=== PATIENT | male | born 1970 | race Caucasian/White ===

== ENCOUNTER 2019-09-07 13:33 | Emergency (ER) | payer OTHER ==
[2019-09-07] MEDS ORDERED: IBUPROFEN 600 MG TABLET PO ONE (14:16)
--- NOTE | 2019-09-07 14:21 | ER Document Report ---
HPI - HPI Time Seen by Provider: 09/07/19 14:10 Notes: Patient is a 49-year-old male no significant past medical history who presents complaining of a tearing sensation to his right bicep and then noticing bulging in his lower bicep area when he tried to pick someone up off of the floor today. He does have some mild pain to this area. No other concerns or complaints. Denies drug allergies. Denies any headache, fever, URI, sore throat, chest pain, palpitations, syncope, cough, shortness of breath, wheeze, dyspnea, abdominal pain, nausea/vomiting/diarrhea, urinary retention, dysuria, hematuria, or rash. - ROS Systems Reviewed and Negative: Yes All other systems reviewed and negative Past Medical History - Social History Smoking Status: Unknown if Ever Smoked Family History: Reviewed & Not Pertinent Vertical Provider Document - CONSTITUTIONAL Agree With Documented VS: Yes Notes: PHYSICAL EXAMINATION: GENERAL: Well-appearing, well-nourished and in no acute distress. NECK: Normal range of motion, supple without lymphadenopathy. Non-tender. Spurling negative. No rigidity/meningismus. LUNGS: Breath sounds clear to auscultation bilaterally and equal. No wheezes rales or rhonchi. HEART: Regular rate and rhythm without murmurs, rubs, gallops. Musculoskeletal: Rt shoulder: + distal biceps bulge noted with mild tenderness and bogginess. Biceps muscle not able to be activated, suspect tendon rupture. FROM to passive/active. Strength 4+/5 due to pain. No erythema or warmth. No ecchymosis. N/V intact distal otherwise. Extremities: No cyanosis, clubbing, or edema b/l. Peripheral pulses 2+. Capillary refill less than 3 seconds. NEUROLOGICAL: Normal speech, normal gait. Normal sensory, motor exams PSYCH: Normal mood, normal affect. SKIN: Warm, Dry, normal turgor, no rashes or lesions noted. Course - Re-evaluation Re-evalutation: 09/07/[address] Blood: He can see this gentleman tomorrow afternoon in the office. Patient is an afebrile, well-hydrated, 49-year-old male who presents to the ED with a prox biceps tendon rupture. Vitals are acceptable without any significant tachycardia, tachypnea, or hypoxia. PE is otherwise unremarkable for any neurovascular compromise, open fracture, septic joint. XR unremarkable. Sling provided. Motrin given PO. Patient is nontoxic-appearing. No other labs or imaging warranted at this time based on H&P. Conservative measures otherwise for symptoms. Recheck with your PCM in 3-5 days. Call orthopedics to schedule an appointment for further evaluation and management. Return to the ED with any worsening/concerning symptoms otherwise as reviewed in discharge. Patient is in agreement. - Vital Signs Vital signs: Temp Pulse Resp BP Pulse Ox 98.3 F 77 18 124/80 99 09/07/19 13:41 09/07/19 13:41 09/07/19 13:41 09/07/19 13:41 09/07/19 13:41 Discharge - Discharge Clinical Impression: Rupture of proximal biceps tendon Qualifiers: Encounter type: initial encounter Laterality: right Qualified Code(s): S46.211A - Strain of muscle, fascia and tendon of other parts of biceps, right arm, initial encounter Condition: Stable Disposition: HOME, SELF-CARE Additional Instructions: Rest, Ice, Compression, Elevation Use sling as directed Tylenol/ibuprofen as needed F/u with your PCP in 3-5 days for a recheck See OrthoDr. Blood, tomorrow afternoon in his office--call today to confirm. Return to the ED with any worsening symptoms and/or development of fever, headache, chest pain, palpitations, syncope, shortness of breath, trouble breathing, abdominal pain, n/v/d, muscle weakness/paralysis, numbness/tingling, swelling, redness, or other worsening symptoms that are concerning to you. Referrals: HEMAL BLOOD MD [ACTIVE STAFF] - Follow up tomorrow
[2019-09-07] MEDS ORDERED: HYDROCODONE/ACETAMINOPHEN 5-325 MG (6 TAB/ER DISP) PO PRN (14:58)
--- NOTE | 2019-09-07 15:01 | RADIOLOGY REPORT (SQ) ---
EXAM DESCRIPTION: SHOULDER RIGHT 2 OR MORE VIEWS COMPLETED DATE/TIME: 09/07/2019 2:35 pm REASON FOR STUDY: prox biceps tendon rupture on exam COMPARISON: None. NUMBER OF VIEWS: Three views. TECHNIQUE: Internal rotation, external rotation, and Y view images acquired of the right shoulder. LIMITATIONS: None. FINDINGS: MINERALIZATION: Normal. BONES: No acute fracture. No worrisome bone lesions. No avulsion fragments along the coracoid proce ss or superior bony glenoid. JOINTS: No glenohumeral joint malalignment. No AC joint widening. VISUALIZED LUNGS AND RIBS: No pneumothorax. No rib fracture. SOFT TISSUES: No radiopaque foreign body. OTHER: No other significant finding. IMPRESSION: NEGATIVE STUDY OF THE RIGHT SHOULDER. NO RADIOGRAPHIC EVIDENCE OF ACUTE INJURY. TECHNICAL DOCUMENTATION: JOB ID: [id number] [employer]- All Rights Reserved Reading location - IP/workstation name: [email or web address]
[2019-09-07 15:50] VITALS: BP 120/80
== END 2019-09-07 15:42 | disposition home or self-care (01) ==
LOC: ER 13:33
DX: S46.211A Strain of muscle, fascia and tendon of other parts of biceps, right arm, initial encounter (principal); X50.0XXA Overexertion from strenuous movement or load, initial encounter
CPT/HCPCS: 99283

== ENCOUNTER 2020-02-22 05:23 | Day surgery (SDC) | payer OTHER, BC ==
[2020-02-17 10:53] LABS: ABSOLUTE BASOPHILS # (AUTO) 0.1 10^3/uL (0.0-0.2); ABSOLUTE EOSINOPHILS # (AUTO) 0.2 10^3/uL (0.0-0.6); ABSOLUTE MONOCYTES (AUTO) 0.5 10^3/uL (0.1-1.4); ABSOLUTE NEUT (AUTO) 4.4 10^3/uL (1.7-8.2); BASOPHILS % (AUTO) 0.8 % (0-2); EOSINOPHILS % (AUTO) 2.5 % (0-6); HEMOGLOBIN 17.2 g/dL (13.5-17.0); LYMPHOCYTES % (AUTO) 28.2 % (13-45); MEAN CORPUSCULAR HEMOGLOBIN 29.9 pg (27.0-33.4); MEAN CORPUSCULAR HGB CONC 35.2 g/dL (32.0-36.0); MEAN CORPUSCULAR VOLUME 85 fl (80-97); MONOCYTES % (AUTO) 7.5 % (3-13); PLATELET COUNT 256 10^3/uL (150-450); RED BLOOD COUNT 5.75 10^6/uL (4.35-5.55); RED CELL DISTRIBUTION WIDTH 12.6 % (11.5-14.0); TOTAL CELLS COUNTED % (AUTO) 100 %; WHITE BLOOD COUNT 7.3 10^3/uL (4.0-10.5)
--- NOTE | 2020-02-17 12:49 | RADIOLOGY REPORT (SQ) ---
EXAM DESCRIPTION: CHEST PA/LATERAL IMAGES COMPLETED DATE/TIME: 02/17/2020 10:46 am REASON FOR STUDY: PRE-OP COMPARISON: None. EXAM PARAMETERS: NUMBER OF VIEWS: two views TECHNIQUE: Digital Frontal and Lateral radiographic views of the chest acquired. RADIATION DOSE: NA LIMITATIONS: none FINDINGS: LUNGS AND PLEURA: No opacities, masses or pneumothorax. No pleural effusion. MEDIASTINUM AND HILAR STRUCTURES: No masses or contour abnormalities. HEART AND VASCULAR STRUCTURES: Heart normal size. No evidence for failure. BONES: No acute findings. HARDWARE: None in the chest. OTHER: No other significant finding. IMPRESSION: NO SIGNIFICANT RADIOGRAPHIC FINDING IN THE CHEST. TECHNICAL DOCUMENTATION: JOB ID: [id number] 2010 [employer]- All Rights Reserved Reading location - IP/workstation name: [email or web address]
[2020-02-17 13:32] LABS: ANION GAP 8 (5-19); BLOOD UREA NITROGEN 12 mg/dL (7-20); CALCIUM 10.1 mg/dL (8.4-10.2); CARBON DIOXIDE 28 mmol/L (22-30); CHLORIDE 102 mmol/L (98-107); GLUCOSE 80 mg/dL (75-110); POTASSIUM 4.5 mmol/L (3.6-5.0)
--- NOTE | 2020-02-18 19:16 | EKG REPORT ---
SEVERITY:- NORMAL ECG - SINUS RHYTHM : Confirmed by: Jerica Turner 18-Feb-2020 19:15:32
[~2020-02-22 05:23] MED LIST: CEFAZOLIN 2 GM/D5W RTU 2 GM/50 ML RTUPB IV PRN; LIDOCAINE 0.5% INJ-PF (5 MG/ML) 50 ML SDV SUBCUT PRN; RINGERS SOLUTION,LACTATED 1,000 ML IV PRN
[2020-02-22] MEDS ORDERED: CEFAZOLIN 2 GM/D5W RTU 2 GM/50 ML RTUPB IV ONE (05:43)
[2020-02-22] MEDS ORDERED: EPINEPHRINE INJ/PF 1 MG/1 ML AMPULE ONE (07:07)
[2020-02-22] MEDS ORDERED: FENTANYL CITRATE INJ/PF 250 MCG/5 ML AMPULE ONE (07:20)
[2020-02-22] MEDS ORDERED: MIDAZOLAM 2 MG/2 ML INJ ONE (07:20)
[2020-02-22] MEDS ORDERED: PROPOFOL INJ 200 MG/20 ML VIAL IV ONE (07:21)
[2020-02-22] MEDS ORDERED: EPHEDRINE SULFATE INJ 50 MG/1 ML AMPULE ONE (07:21)
[2020-02-22] MEDS ORDERED: BUPIVACAINE HCL 0.5%-EPI 1:200000 INJ/PF 30 ML VIAL ONE (07:35)
[2020-02-22] MEDS ORDERED: PROMETHAZINE HCL INJ 25 MG/1 ML VIAL IV PRN (08:11)
[2020-02-22] MEDS ORDERED: MEPERIDINE HCL/PF INJ 25 MG/1 ML DISP.SYRIN IV PRN (08:11)
[2020-02-22] MEDS ORDERED: OXYCODONE-ACETAMINOPHEN 5-325 MG TABLET PO PRN ×3 (08:11→10:00)
[2020-02-22] MEDS ORDERED: DIPHENHYDRAMINE HCL 50 MG/ML VIAL IV PRN (08:11)
[2020-02-22] MEDS ORDERED: FENTANYL CITRATE INJ/PF 100 MCG/2 ML AMPUL IV PRN ×3 (08:11)
[2020-02-22] MEDS ORDERED: ONDANSETRON HCL INJ/PF 4 MG/2 ML SDV IV PRN (10:00)
[2020-02-22] MEDS ORDERED: MORPHINE SULFATE 10 MG/ML INJ IV PRN (10:00)
--- NOTE | 2020-02-22 10:00 | Operative Report ---
Operative Report DATE OF SURGERY: 02/22/20 PREOPERATIVE DIAGNOSIS: Right shoulder partial subscapularis tear, impingement syndrome, subacromial bursitis, proximal biceps tendon rupture POSTOPERATIVE DIAGNOSIS: Right shoulder proximal biceps tendon rupture, impingement syndrome, supraspinatus tear OPERATION: Right shoulder arthroscopy with rotator cuff repair, subacromial decompression, acromioplasty SURGEON: NANCIE BRAR ANESTHESIA: GA COMPLICATIONS: None ESTIMATED BLOOD LOSS: Minimal PROCEDURE: Indication for above procedure: 49-year-old male who sustained injury to his right shoulder on 09/07/2019 when he was helping a patron get up after sustaining a fall he felt a ripping in his arm at that time with deformity. Patient had MRI consistent with proximal biceps tendon rupture with possible partial subscapularis tear. We attempted conservative measures without resolution of patient's symptoms at that point decision was made to proceed with operative intervention. Procedure In Detail: Patient was seen and evaluated in the preoperative holding area. The RIGHT upper extremity was initialized and marked. Patient received 2g of Ancef IV for bacterial prophylaxis. Patient was taken back to the operative room where transferred to the operative table and placed under general anesthesia. Once they were adequately anesthetized patient placed in the beachchair position. Cervical spine was placed in neutral position all bony prominences were padded including nonoperative upper extremity and bilateral lower extremity. A surgical team debriefing was performed ensuring all instrumentation was available, the surgical procedure was discussed with possible concerns reviewed. The upper extremity was prepped with ChloraPrep draped in a sterile fashion. A timeout was done identifying correct patient, procedure and extremity everyone in attendance agree with this and verbalized no concerns. Posterior portal was established arthroscope was introduced into the glenohumeral joint. Anterior portal was established Via triangulation. Diagnostic arthroscopy demonstrated full-thickness biceps tear with complete avulsion of the anterior portion of the labrum with small remnant stump noted. Subscapularis remained intact. Partial-thickness tear was noted along the supraspinatus 18-gauge needle was triangulated and PDS suture placed as a tag suture to allow for later retrieval. The biceps tendon was debrided along with the remanent labrum. Undersurface of the rotator cuff was debrided as well. Attention then turned to subacromial space. Arthroscope was introduced into the subacromial space via triangulation a lateral portal was established. Coracoacromial ligament was released but not excised. Acromioplasty performed. Small defect within the rotator cuff was noted at the level of the previous tag suture consistent with high-grade partial tear. This area was debrided down to labrum decorticating the area to promote healing. Additional portal was established and a medial swivel lock anchor was inserted. Passport cannula was then placed through the lateral portal and fiber tape suture was placed anteriorly and posteriorly. FiberWire was placed centrally. This was then tied bringing the rotator cuff down to the medial row. The area was then debrided laterally and all 4 sutures were placed through a lateral swivel lock tensioning was performed anteriorly and posteriorly. [place] was then inserted laterally providing goo attention then turned to biceps tenodesis. Longitudinal skin incision was made d compression of the rotator cuff down to the). Rotator cuff repair was mobilized as a unit with range of motion. Along the inferior border of the pectoralis. Blunt dissection was performed musculotendinous nerve was identified along the medial biceps with a branch of the biceps tendon identified. There was significant scarring of the remanent tendon to the medial biceps which could not be safely or successfully mobilized to provide tenodesis thus area was copiously irrigated with normal saline and a peripheral pitting was controlled with cautery. Subcutaneous tissues were cl osed with 4-0 Monocryl suture. Skin was closed with subcuticular 4-0 Monocryl reinforced with Dermabond and Steri-Strips. Portal incisions were closed with interrupted 3-0 nylon suture. Wound was d ressed with Xeroform 4 x 4's and a soft dressing. Patient was placed in ARC shoulder sling. Sponge counts, instrument counts, needle counts were correct. Patient was then awoken from anesthesia. Transferred from the operating room table to the operating room stretcher. There was no intraoperative complications patient tolerated procedure well stable to PACU. Postop plan: Patient will follow in the office in 2 weeks for wound check. May begin elbow range of motion with pendulum exercises. We will start physical therapy as per rotator cuff protocol 4 weeks postoperatively.
--- NOTE | 2020-02-22 10:01 | Discharge Summary ---
Discharge Summary (SDC) - Discharge Final Diagnosis: Right proximal biceps tendon rupture, impingement syndrome Date of Surgery: 02/22/20 Discharge Date: 02/22/20 Condition: Good Treatment or Instructions: Schedule Follow Up w/ Dr. Mike Lay @ [facility] to be seen in 10-14 days or as scheduled [place]: [place]: [place]: May remove dressing on postop day #3, keep incision covered and dry. Cryocuff to shoulder May begin pendulum exercises along w/ hand, wrist and elbow range of motion 4x per day or as tolerated. May remove sling for hygiene purposes otherwise continue it at all times. Stool softener of choice when on pain medication. USE OF [id number] IBUPROFEN: Ibuprofen (Advil, Nuprin, Medipren, Motrin IB) is a medication for fever and pain control. In addition, it has anti- inflammatory effects which may be beneficial, especially in the treatment of injuries. It's best to take ibuprofen with food. Persons with ulcer disease or allergy to aspirin should notify their physician of this before taking ibuprofen. Ibuprofen can be given every four to six hours, for a total of four doses daily. Age Pain or fever dose Antiinflammatory dose 6-8 yr 200 mg (1 tab) 200 mg (1 tab) 9-11 yr 200 mg (1 tab) 200-400 mg (1-2 tab) 11-14 yr 200-400 mg (1-2 tab) 400 mg (2 tab) 15-adult 400 mg (2 tab) 600 mg (3 tab) ORAL NARCOTIC MEDICATION: You have been given a prescription for pain control. This medication is a narcotic. It's best taken with food, as nausea can result if taken on an empty stomach. Don't operate machinery or drive within six hours of taking this medication. Do not combine this medicine with alcohol, or with any medication which can cause sedation (such as cold tablets or sleeping pills) unless you get permission from the physician. Narcotics tend to cause constipation. If possible, drink plenty of fluids and eat a diet high in fiber and fruits. Please be aware that prescription narcotics also have the potential for abuse. People become addicted to these medications because of the general sense of wellbeing that they induce. This feeling along with a significant reduction in tension, anxiety, and aggression provides a stimulating seductive quality to these drugs. Once your pain is under control, we encourage you to discard your unused narcotics. Prescriptions: Ketorolac Tromethamine [Toradol 10 mg Tablet] 10 mg PO Q8HP PRN #12 tablet PRN Reason: Oxycodone HCl/Acetaminophen [Percocet 7.5-325 mg Tablet] 1 tab PO Q6 PRN #25 tab PRN Reason: Referrals: IVORY GONZALES MD [Primary Care Provider] - Discharge Diet: As Tolerated Respiratory Treatments at Home: Deep Breathing/Coughing, Incentive Spirometer Discharge Activity: No Lifting Over 10 Pounds, No Lifting/Push/Pulling Report the Following to Your Physician Immediately: Fever over 101 Degrees, Unusual Bleeding, Redness, Swelling, Warmth, Increased Soreness
[2020-02-22] MEDS: PROMETHAZINE HCL INJ 25 MG/1 ML VIAL IV PRN ×2 (11:11→11:20)
[2020-02-22] MEDS ORDERED: ONDANSETRON HCL INJ/PF 4 MG/2 ML SDV ONE (11:11)
[2020-02-22] MEDS ORDERED: PROMETHAZINE HCL INJ 25 MG/1 ML VIAL ONE (11:24)
[2020-02-22] MEDS: MORPHINE SULFATE 10 MG/ML INJ ONE ×5 (11:43→12:03)
[2020-02-22] MEDS ORDERED: OXYCODONE-ACETAMINOPHEN 5-325 MG TABLET ONE (12:53)
[2020-02-22] MEDS ORDERED: IBUPROFEN 800 MG in NORMAL SALINE 250 ML IV ONE (13:00)
[2020-02-22] MEDS ORDERED: NEOSTIGMINE METHYLSULFATE 10 MG/10 ML VIAL ONE (14:11)
[2020-02-22] MEDS ORDERED: ROCURONIUM BROMIDE INJ 50 MG/5 ML VIAL IV ONE (14:11)
[2020-02-22] MEDS ORDERED: GLYCOPYRROLATE 1 MG/5 ML VIAL ONE (14:11)
[2020-02-22] MEDS ORDERED: SUCCINYLCHOLINE CHLORIDE INJ 200 MG/10 ML VIAL ONE (14:11)
[2020-02-22] MEDS ORDERED: ONDANSETRON 4 MG TAB.RAPDIS ONE (14:54)
[2020-02-22] MEDS ORDERED: SCOPOLAMINE HYDROBROMIDE 1.5 MG PATCH.TD72 ONE ×2 (14:55→14:57)
[2020-02-22 16:12] VITALS: BP 124/81
== END 2020-02-22 15:25 | disposition home or self-care (01) ==
LOC: OROUT 05:23
PROVIDERS: ATTEND Orthopaedic Surgery
DX: S46.211A Strain of muscle, fascia and tendon of other parts of biceps, right arm, initial encounter (principal); S46.011A Strain of muscle(s) and tendon(s) of the rotator cuff of right shoulder, initial encounter; X58.XXXA Exposure to other specified factors, initial encounter; M75.41 Impingement syndrome of right shoulder; M79.601 Pain in right arm; Z79.899 Other long term (current) drug therapy; E78.00 Pure hypercholesterolemia, unspecified; Z03.818 Encounter for observation for suspected exposure to other biological agents ruled out
CPT/HCPCS: 29826; 29827; 93005; 36415; 85025; 87635; 80048; 71046; 93010; 01630; C1713 ×3; J2250; J3490 ×3; J0171; S0119; J3010; J2270; J2710; J2550; J0330; J2405; J7050; J2704; J0690; J1741; C9803; 1630

== ENCOUNTER 2020-03-11 08:38 | Emergency (ER) | payer OTHER ==
--- NOTE | 2020-03-11 10:35 | ER Document Report ---
ED Medical Screen (RME) - General Chief Complaint: Post Surgical Pain Stated Complaint: POST OP PAIN Time Seen by Provider: 03/11/20 10:28 Primary Care Provider: IVORY GONZALES MD [Primary Care Provider] - Follow up as needed Mode of Arrival: Ambulatory Information source: Patient Notes: 49-year-old male presented to ED for postop complications. He states he had a rotator cuff repair by Dr. shell during 30 years. He states that he noticed 1 lump in his left axilla area and he had some pain in the area and then this morning he woke up it was very hot with 2 lumps and burning pain. He states he called Dr. Lay office and they told him to come to the emergency room. He needs to be evaluated for complications from his surgery. I have greeted and performed a rapid initial assessment of this patient. A comprehensive ED assessment and evaluation of the patient, analysis of test results and completion of medical decision making process will be conducted by an additional ED providers. - Related Data Allergies/Adverse Reactions: No Known Allergies Allergy (Verified 02/22/20 05:41) Past Medical History - Past Medical History Cardiac Medical History: Denies: Hx Coronary Artery Disease, Hx Heart Attack, Hx Hypertension Pulmonary Medical History: Denies: Hx Asthma, Hx Bronchitis, Hx COPD, Hx Pneumonia Neurological Medical History: Denies: Hx Cerebrovascular Accident, Hx Seizures Musculoskeltal Medical History: Denies Hx Arthritis - Immunizations Hx Diphtheria, Pertussis, Tetanus Vaccination: Yes Physical Exam - Vital signs Vitals: Temp Pulse Resp BP Pulse Ox 98.6 F 107 H 16 137/94 H 99 03/11/20 08:41 03/11/20 08:41 03/11/20 08:41 03/11/20 08:41 03/11/20 08:41 Course - Vital Signs Vital signs: Temp Pulse Resp BP Pulse Ox 98.6 F 107 H 16 137/94 H 99 03/11/20 08:41 03/11/20 08:41 03/11/20 08:41 03/11/20 08:41 03/11/20 08:41 Doctor's Discharge - Discharge Referrals: IVORY GONZALES MD [Primary Care Provider] - Follow up as needed
[2020-03-11 10:55] LABS: APPEARANCE,URINE CLEAR; BILIRUBIN,URINE NEGATIVE (NEGATIVE); COLOR,URINE STRAW; GLUCOSE, URINE NEGATIVE (NEGATIVE); KETONES,URINE NEGATIVE (NEGATIVE); LEUKOCYTE ESTERASE,URINE NEGATIVE (NEGATIVE); NITRITE,URINE NEGATIVE (NEGATIVE); PROTEIN,URINE NEGATIVE (NEGATIVE); URINE SPECIFIC GRAVITY 1.002; UROBILINOGEN,URINE NEGATIVE mg/dL (<2.0)
[2020-03-11 11:00] LABS: ABSOLUTE BASOPHILS # (AUTO) 0.1 10^3/uL (0.0-0.2); ABSOLUTE EOSINOPHILS # (AUTO) 0.1 10^3/uL (0.0-0.6); ABSOLUTE LYMPHOCYTES (AUTO) 1.6 10^3/uL (0.5-4.7); ABSOLUTE MONOCYTES (AUTO) 0.9 10^3/uL (0.1-1.4); ABSOLUTE NEUT (AUTO) 8.6 10^3/uL (1.7-8.2); BASOPHILS % (AUTO) 0.5 % (0-2); EOSINOPHILS % (AUTO) 1.1 % (0-6); HEMATOCRIT 47.6 % (37.9-51.0); HEMOGLOBIN 16.8 g/dL (13.5-17.0); LYMPHOCYTES % (AUTO) 14.2 % (13-45); MEAN CORPUSCULAR HEMOGLOBIN 30.1 pg (27.0-33.4); MEAN CORPUSCULAR HGB CONC 35.2 g/dL (32.0-36.0); MEAN CORPUSCULAR VOLUME 86 fl (80-97); MONOCYTES % (AUTO) 7.9 % (3-13); PLATELET COUNT 290 10^3/uL (150-450); RED BLOOD COUNT 5.57 10^6/uL (4.35-5.55); RED CELL DISTRIBUTION WIDTH 12.8 % (11.5-14.0); SEGMENTED NEUTROPHILS % (AUTO) 76.3 % (42-78); TOTAL CELLS COUNTED % (AUTO) 100 %; WHITE BLOOD COUNT 11.3 10^3/uL (4.0-10.5)
[2020-03-11 11:08] LABS: INTERNATIONAL RATION (INR) 0.96; PARTIAL THROMBOPLASTIN TIME 26.3 SEC (23.5-35.8); PROTHROMBIN TIME 12.8 SEC (11.4-15.4)
[2020-03-11 11:22] LABS: ALBUMIN 5.1 g/dL (3.5-5.0); ALKALINE PHOSPHATASE 73 U/L (38-126); ANION GAP 9 (5-19); ASPARTATE AMINO TRANSFERASE 19 U/L (17-59); BILIRUBIN,TOTAL 0.7 mg/dL (0.2-1.3); BLOOD UREA NITROGEN 10 mg/dL (7-20); C-REACTIVE PROTEIN 7.5 mg/L (<10.0); CALCIUM 10.5 mg/dL (8.4-10.2); CARBON DIOXIDE 31 mmol/L (22-30); CHLORIDE 98 mmol/L (98-107); GLUCOSE 91 mg/dL (75-110); TOTAL PROTEIN 7.6 g/dL (6.3-8.2)
[2020-03-11 11:38] LABS: ERYTHROCYTE SEDIMENTATION RATE 8 mm/hr (0-15)
[2020-03-11] MEDS ORDERED: OXYCODONE-ACETAMINOPHEN 5-325 MG TABLET PO ONE (13:44)
--- NOTE | 2020-03-11 14:02 | ER Document Report ---
Entered by DONN PEARCE SCRIBE 03/11/20 1234 Acting as scribe for:ALY FLORENTINO MD ED General - General Chief Complaint: Post Surgical Pain Stated Complaint: POST OP PAIN Time Seen by Provider: 03/11/20 10:28 Primary Care Provider: IVORY GONZALES MD [Primary Care Provider] - Follow up as needed NANCIE LAY DO [ACTIVE STAFF] - 03/13/20 Mode of Arrival: Ambulatory Information source: Patient Notes: This 49 year old male patient presents to the emergency department today with complaints of a burning sensation in his right axilla. Patient had right rotator cuff surgery on 02/[address] Lay. Patient states he first noticed the burning sensation 2 days ago and he adds that it has gotten much worse since onset. There are no blisters. - Related Data Allergies/Adverse Reactions: No Known Allergies Allergy (Verified 02/22/20 05:41) Past Medical History - General Information source: Patient - Social History Smoking Status: Never Smoker Cigarette use (# per day): No Frequency of alcohol use: None Drug Abuse: None Lives with: Family Family History: Reviewed & Not Pertinent Patient has homicidal ideation: No - Past Medical History Cardiac Medical History: Reports: Hx Hypercholesterolemia Psychiatric Medical History: Reports: Hx Anxiety Past Surgical History: Reports: Hx Orthopedic Surgery - right rotator cuff, Other - Nose surgery - Immunizations Hx Diphtheria, Pertussis, Tetanus Vaccination: Yes Review of Systems - Review of Systems Constitutional: No symptoms reported EENT: No symptoms reported Cardiovascular: No symptoms reported Respiratory: No symptoms reported Gastrointestinal: No symptoms reported Genitourinary: No symptoms reported Male Genitourinary: No symptoms reported Musculoskeletal: See HPI, Other - recent right shoulder surgery Skin: See HPI, Lesions - right axilla Hematologic/Lymphatic: No symptoms reported Neurological/Psychological: No symptoms reported -: Yes All other systems reviewed and negative Physical Exam - Vital signs Vitals: Temp Pulse Resp BP Pulse Ox 98.6 F 107 H 16 137/94 H 99 03/11/20 08:41 03/11/20 08:41 03/11/20 08:41 03/11/20 08:41 03/11/20 08:41 - Notes Notes: Physical Exam: General: Alert, appears uncomfortable. HEENT: Normocephalic. Atraumatic. PERRL. Extraocular movements intact. Oropharynx clear. Neck: Supple. Non-tender. Respiratory: No respiratory distress. Clear and equal breath sounds bilaterally. Cardiovascular: Regular rate and rhythm. Abdominal: Normal Inspection. Non-tender. No distension. Normal Bowel Sounds. Back: No gross abnormalities. Extremities: Moves all four extremities. Upper extremities: Normal inspection. Normal ROM. Lower extremities: Normal inspection. No edema. Normal ROM. Neurological: Normal cognition. AAOx4. Normal speech. Psychological: Normal affect. Normal Mood. Skin: There is at least 4 discernable subcutaneous nodules in the right axilla between 3-4 mm. No blistering. No abscess. Difficult to evaluate because of recent surgery and being unable to lift right arm. Shoulder surgery wounds are steri-stripped. Wounds appear clean, dry, and intact. Course - Re-evaluation Re-evalutation: 03/11/20 14:45 The patient's case was discussed with Dr. Lay, his orthopedic surgeon. This is a very unusual physical exam, there are no blisters, there is no redness. There are subcutaneous nodules measuring about 3 mm. These nodules are exquisitely tender and he reports a severe burning sensation on palpating them. They are all located on the thoracic side of the axilla. The lab work does not suggest a systemic infectious problem. The ESR and CRP are both very low. Dr. Lay did suggest starting the patient on gabapentin to see if it would help with the burning sensation he is experiencing. He does have plenty of oxycodone and OxyContin at home to take for the severe pain. He would like to see him in follow-up Friday in the clinic. - Vital Signs Vital signs: Temp Pulse Resp BP Pulse Ox 98.6 F 107 H 16 137/94 H 99 03/11/20 12:10 03/11/20 08:41 03/11/20 08:41 03/11/20 08:41 03/11/20 08:41 - Laboratory Result Diagrams: 03/11/20 10:38 03/11/20 10:38 Laboratory results interpreted by me: 03/11/20 03/11/20 10:38 10:38 WBC 11.3 H RBC 5.57 H Absolute Neuts (auto) 8.6 H Carbon Dioxide 31 H Calcium 10.5 H Albumin 5.1 H Discharge - Discharge Clinical Impression: Hidradenitis axillaris Condition: Stable Disposition: HOME, SELF-CARE Additional Instructions: Your examination is very suspicious for hidradentis which is in infections of sweat glands in the armpit. For now we will treat you with antibiotics, and add gabapentin to your other medications to see if it reduces the burning discomfort. Follow-up with Dr. Lay on Friday morning in the office. RETURN TO THE EMERGENCY ROOM IF ANY NEW OR WORSENING SYMPTOMS. Prescriptions: Cephalexin Monohydrate [Keflex 500 mg Capsule] 500 mg PO QID #28 capsule Gabapentin [Neurontin] 400 mg PO Q8 #30 capsule Referrals: IVORY GONZALES MD [Primary Care Provider] - Follow up as needed NANCIE LAY DO [ACTIVE STAFF] - 03/13/20 I personally performed the services described in the documentation, reviewed and edited the documentation which was dictated to the scribe in my presence, and it accurately records my words and actions.
[2020-03-11] MEDS ORDERED: GABAPENTIN 300 MG CAPSULE PO ONE (14:24)
[2020-03-11] MEDS ORDERED: GABAPENTIN 100 MG CAPSULE PO ONE (14:24)
[2020-03-11] MEDS ORDERED: CEPHALEXIN 500 MG CAPSULE PO ONE (14:45)
[2020-03-11 15:34] VITALS: BP 135/89
== END 2020-03-11 15:33 | disposition home or self-care (01) ==
LOC: ER 08:38
DX: L73.2 Hidradenitis suppurativa (principal); Z98.890 Other specified postprocedural states
CPT/HCPCS: 36415; 80053; 81001; 85025; 85610; 85652; 85730; 86140; 87040; 99283

== ENCOUNTER 2020-03-16 07:54 | Emergency (ER) | payer OTHER, BC ==
[2020-03-16 08:08] VITALS: BP 151/89
--- NOTE | 2020-03-16 08:55 | ER Document Report ---
ED General - General Chief Complaint: Arm Pain Stated Complaint: ARM INJURY Time Seen by Provider: 03/16/20 08:36 Notes: 49-year male with right axilla lymph node infection of unclear etiology pending excision today who AMA from the hospital last night returns with pain in his axilla. Severe. He also complains that his left arm hurts where they put the blood pressure cuff around his IV site. He had extensive work-up with Dr. Lay admitting Dr. Monzon consulting on the hospitalist consulting but left AGAINST MEDICAL ADVICE last night because he was frustrated. He is here to be readmitted. No worsening fever. - Related Data Allergies/Adverse Reactions: No Known Allergies Allergy (Verified 02/22/20 05:41) Past Medical History - Social History Smoking Status: Never Smoker Chew tobacco use (# tins/day): No Drug Abuse: None Family History: Reviewed & Not Pertinent - Past Medical History Cardiac Medical History: Reports: Hx Hypercholesterolemia Denies: Hx Coronary Artery Disease, Hx Heart Attack, Hx Hypertension Pulmonary Medical History: Denies: Hx Asthma, Hx Bronchitis, Hx COPD, Hx Pneumonia Neurological Medical History: Denies: Hx Cerebrovascular Accident, Hx Seizures Musculoskeletal Medical History: Denies Hx Arthritis Psychiatric Medical History: Reports: Hx Anxiety Denies: Hx Depression Past Surgical History: Reports: Hx Orthopedic Surgery - right rotator cuff, Other - Nose surgery - Immunizations Hx Diphtheria, Pertussis, Tetanus Vaccination: Yes Review of Systems - Review of Systems Notes: REVIEW OF SYSTEMS GEN: Denies fever, chills, weight loss ENT: Denies sore throat, nasal discharge, ear pain EYES: Denies blurry vision, eye pain, discharge CV: Denies chest pain, palpitations, edema RESP: Denies cough, shortness of breath, wheezing GI: Denies abdominal pain, nausea, vomiting, diarrhea MSK: Leg pain right shoulder pain LYMPH: Denies swollen glands/lymph nodes NEURO: Denies headache, focal weakness or numbness, dizziness PSYCH: Denies depression, suicidal or homicidal ideation PHYSICAL EXAMINATION General: No acute distress, well-nourished Head: Atraumatic, normocephalic ENT: Mouth normal, oropharynx moist, no exudates or tonsillar enlargement Eyes: Conjunctiva normal, pupils equal, lids normal Neck: No JVD, supple, no guarding CVS: Normal rate, regular rhythm, no murmurs Resp: No resp distress, equal and normal breath sounds bilaterally GI: Nondistended, soft, no tenderness to palpation, no rebound or guarding Ext: Range of motion of right shoulder status post surgery, with some scarring in the biceps region and some tenderness in the axilla Back: No CVA or midline TTP Skin: No rash, warm Lymphatic: No lymphadeopathy noted Neuro: Awake, alert. Face symmetric. GCS 15. Physical Exam - Vital signs Vitals: Temp Pulse Resp BP Pulse Ox 98.6 F 104 H 20 151/89 H 100 03/16/20 08:06 03/16/20 08:06 03/16/20 08:06 03/16/20 08:06 03/16/20 08:06 Course - Re-evaluation Re-evalutation: 03/16/20 08:54 Patient presents with ongoing lymph node infection pending surgical excision not septic Dilaudid pain repeat labs admit to Ortho. Discussed with Gisel patient was Ortho primary stable discussed with Dr. Lay. 03/16/20 15:15 Discussed with Nghia. He discussed with Gisel. I discussed with Gisel Batres to admit - Vital Signs Vital signs: Temp Pulse Resp BP Pulse Ox 98.6 F 104 H 20 151/89 H 100 03/16/20 08:06 03/16/20 08:06 03/16/20 08:06 03/16/20 08:06 03/16/20 08:06 Discharge - Discharge Clinical Impression: Lymphadenitis Condition: Fair Disposition: AGAINST MEDICAL ADVICE Admitting Provider: Gisel (Hospitalist) Unit Admitted: Medical Floor
[2020-03-16] MEDS: HYDROMORPHONE HCL INJ/PF 2 MG/ML AMPULE IV ONE ×2 (09:29→09:43)
[2020-03-16] MEDS ORDERED: METOCLOPRAMIDE HCL INJ/PF 10 MG/2 ML SDV IV ONE (09:31)
[2020-03-16] MEDS ORDERED: OXYCODONE-ACETAMINOPHEN 5-325 MG TABLET PO ONE (09:36)
--- NOTE | 2020-03-16 10:57 | Progress Note ---
Provider Note Provider Note: [facility] - Telephone Consultation Note Asked by Pharmacy to review patient's chart yesterday afternoon and provide input. Patient left AMA from the hospital but returned this morning 03/16/20 due to complaints of severe right axillary pain. Patient not seen or examined. Reviewed provider notes, vitals, labs and imaging reports. Mr. Finley is a 49 year old man who had repair of rotator cuff tear of his right shoulder on 02/22/20. Per notes, pt had uneventful post-operative course until 03/09 or 03/10/20 when he noted swelling and pain involving his R axilla that was worsening. He presented to the [facility] ED on 03/11/20, at which time surgical incisions were well approximated c/d/i w/o erythema or discharge or fluctuance, no vesicular lesions were seen, and 4 small tender subcutaneous nodules were appreciated on palpation. ESR and CRP were low and no other signs of systemic involvement were present. He was given a trial of gabapentin and Keflex but returned the next day 03/12/20 with new onset of fever of 102 F. On exam, no streaking erythema, no effusion about glenohumeral or AC joint, but mild erythema and exquisite tenderness to palpation was appreciate of mass along the medial axillary fold. Per notes, patient has exposure to farm animals but denied any direct contact. Has dogs and cats also that he denies had any contact with the surgical wound. He denied recent tick bites. Imaging has included: CT of upper extremity on 03/12/20 did not show a fluid collection to suggest abscess or abnormal enhancement. MRI on 03/13/20 was read as showing cutaneous/subcutaneous edema in the axillary fold with likely reactive adenopathy in the axilla. CXR on 03/13 without acute abnormaltiy. Labs included CRP 7.5 on 03/11, up to 130 on 03/14. ESR 27 on 03/14. RPR NR on 03/14/20. COVID-19 was not detected. CMV IgM and IgG are pending. EBV serologies pending. Q fever antibodies were also sent. IgG for Rickettsiae also sent, pending. RF negative. MIRYAM pending. BCx on 03/11 ngtd x 4 days. Repeat BCx on 03/12 and 03/13 also ngtd. Empirically the patient was administered IV vancomycin and Zosyn. On 03/15 fevers noted to have resolved. Patient planned for excisional lymph node biopsy. Impression/Recommendations Unilateral axillary skin/soft tissue infection or lymphadenitis - Etiology unclear. It is difficult to provide clear cut guidance with lack of a likely diagnosis. - Ddx for tender regional unilateral LAD includes local bacterial infection, cat scratch disease, others. - Would send Bartonella serologies. Does patient have a kitten or recall recent cat bite or scratch or lick involving RUE (not necessarily the surgical wound)? Presence or history of papule or pustule at the site of a relatively recent lick or scratch involving RUE? Cat scratch disease is self-limited, although Z-markel could be considered as it may hasten resolution. Regardless, if pain is from a suppurative node, aspiration or excision may be most important to confirm dx and provide relief. - Has CMV and EBV serologies in process, although presentation, age of patient, labs not particularly suspicious for infectious mononucleosis or acute EBV infection. Similarly, heterophile negative mononucleosis like syndrome from CMV, toxoplasmosis, or acute HIV would also not be expected as typical causes of unilateral axillary lymphadenopathy. Nonetheless, HIV antigen/antibody test is reasonable to pursue if pt has not had this done recently, considering lack of diagnosis, and the fact that HIV testing is recommended as part of routine primary care for all adults. - Other considerations: Ulceroglandular tularemia from tick could cause regional painful lymphadenopathy but should be associated with skin ulcer or perhaps a recently healed one involving R arm and no h/o tick bite; would also expect patient to continue to be ill and lack improvement with Zosyn. More routine bacterial streptococcal or staphylococcal infections are certainly possible. If not systemically ill, given lack of established dx and impending bx, would hold off re-starting empiric antibiotics until pt has the procedure. Jermain Singletary MD [facility] Infect[facility] pager [phone]
== END 2020-03-16 11:59 | disposition left against medical advice (07) ==
LOC: ER 07:54 → EH 11:45 → UNDOADMIN 11:45 → UNDODISIN 11:59 → ER 11:59
DX: I88.9 Nonspecific lymphadenitis, unspecified (principal); M79.602 Pain in left arm; E78.00 Pure hypercholesterolemia, unspecified
CPT/HCPCS: 99283; J1170